=== PATIENT | male | born 1980 | race Two or more races ===

== ENCOUNTER → 2023-07-19 | Outpatient (REF) | LOC: M PLAIMG 09:22 | PROVIDERS: ATTEND Internal Medicine | DX: R06.02 Shortness of breath (principal) ==

== ENCOUNTER → 2023-11-07 | Outpatient (REF) | LOC: M PLAIMG 14:18 | PROVIDERS: ATTEND Nurse Practitioner Family | DX: J32.9 Chronic sinusitis, unspecified (principal) ==

== ENCOUNTER → 2024-03-20 | Outpatient (REF) | LOC: M PLAIMG 13:14 → M RAD 13:14 | PROVIDERS: ATTEND Nurse Practitioner Family | DX: M54.50 Low back pain, unspecified (principal) ==